=== PATIENT | male | born 1930 | race Caucasian/White ===

== ENCOUNTER 2017-07-20 01:29 | Emergency (ER) | payer OTHER, MEDICARE ==
[~2017-07-20] VITALS: Ht 177.8 cm; Wt 75.0 kg
[~2017-07-20 01:29] MED LIST: ARTHRITIS PAIN325 M1 PO; ASPIRIN E.C. 8181 MG PO; BETAPACE 80MG80 MG PO; COUMADIN 6MG6 MG/TAB PO; NO HOME MEDICATIONS; VITA-MIN1 CAP PO
[2017-07-20 01:40] VITALS: BP 145/103; TEMP 97.4
[2017-07-20] MEDS ORDERED: OMEGA-3 1000 MG1 CAP PO (01:50)
[2017-07-20 04:01] VITALS: PULSE 93
== END 2017-07-20 04:00 | disposition home or self-care (01) ==
LOC: COL.ER 01:29
DX: S01.01XA Laceration without foreign body of scalp, initial encounter (principal); I48.91 Unspecified atrial fibrillation; Z23 Encounter for immunization; V49.40XA Driver injured in collision with unspecified motor vehicles in traffic accident, initial encounter

== ENCOUNTER 2018-03-19 18:54 | Observation (INO) | payer MEDICARE ==
[~2018-03-19] VITALS: Ht 180.3 cm; Wt 78.4 kg
[~2018-03-19 18:54] MED LIST changes: +LEVAQUIN 5500 MG/TA1 PO; +OMEGA-3 1000 MG1 CAP PO
[2018-03-19 19:17] LABS: COLLECTION METHOD CLEAN CATCH
[2018-03-19 19:25] LABS: MUCOUS Present /lpf; PH 5 (5-8); SQUAMOUS EPITHELIAL None Seen /hpf; URINE APPEARANCE Clear; URINE BACTERIA None Seen /hpf; URINE BILIRUBIN Negative (NEGATIVE); URINE BLOOD Negative (NEGATIVE); URINE COLOR Yellow; URINE GLUCOSE Negative (NEGATIVE); URINE KETONE Negative (NEGATIVE); URINE LEUKOCYTE ESTERASE Negative (NEGATIVE); URINE NITRATE Negative (NEGATIVE); URINE PROTEIN(semi-quant) Negative (NEGATIVE); URINE RBC 0-2 /hpf; URINE UROBILINOGEN Negative (NEGATIVE)
[2018-03-19 20:05] LABS: BASO % 0.2 % (0.0-2.0); EOS % 0.3 % (0-4.0); GRAN # 4.9 (1.4-6.5); HEMATOCRIT 35.4 % (42.0-52.0); LYMPH # 0.8 (1.2-3.4); LYMPH % 12.1 % (20.0-51.0); MEAN CELL VOLUME 98 fl (80.0-100.0); MEAN CORPUSCULAR HEMOGLOBIN 33 pg (27.0-31.0); MEAN CORPUSCULAR HGB CONC 34 g/dl (33.0-37.0); MONO # 0.6 (0.1-0.6); MONO % 9.1 % (1.7-9.3); PLATELET COUNT 105 K/mm3 (130-400); REDCELL DISTRIBUTION WIDTH-CV 12.7 % (11.5-14.5)
[2018-03-19 20:17] LABS: ALANINE AMINOTRANSFERASE 35 U/L (21-72); ALBUMIN 3.9 gm/dL (3.5-5.0); ALKALINE PHOSPHATASE 60 U/L (50-136); ANION GAP 6 mmol/L (7-16); AST,SGOT 51 U/L (15-37); BILIRUBIN,TOTAL 0.7 mg/dL (0.0-1.0); BLOOD UREA NITROGEN 24 mg/dL (9-20); CALCIUM 9.5 mg/dL (8.4-10.2); CARBON DIOXIDE 30 mmol/L (22-30); CHLORIDE 100 mmol/L (98-107); CREATININE, serum 0.85 mg/dL (0.66-1.25); GLUCOSE 116 mg/dL (74-106); POTASSIUM 4.6 mmol/L (3.4-5.0); SODIUM 136 mmol/L (137-145)
[2018-03-19 20:19] LABS: LACTIC ACID 1.1 mmol/L (0.4-2.0)
[2018-03-19 20:35] LABS: TROPONIN-I < 0.012 ng/mL (0.000-0.034)
[2018-03-19] MEDS ORDERED: THE MEDICINE S200 M2 PO (21:28)
[2018-03-19] MEDS ORDERED: FOLIC ACID 11 MG/TA1 PO (21:29)
[2018-03-19] MEDS ORDERED: LUTEIN 15 MG-0.1 SGL PO (21:29)
[2018-03-19] MEDS ORDERED: LEADER FIBER1 POW PO (21:29)
[2018-03-19] MEDS ORDERED: BIAXIN 500MG T500 MG PO (21:30)
[2018-03-19] MEDS ORDERED: VITAMINC1000TA (21:30)
[2018-03-19] MEDS ORDERED: NATURE'S BLEND100 M2 PO (21:30)
[2018-03-19 22:22] VITALS: BP 139/77; PULSE 95; TEMP 98.2
--- NOTE | 2018-03-19 22:30 | NUR ---
Pt. arrived to the floor via wheelchair. Pt. is currently alerat and oriented. Pt. assessment complete. IV to rt. ac patent. Pt. denies pain or other needs, call light within reach. Bed alarm on.
--- NOTE | 2018-03-20 02:30 | NUR ---
Pt.'s bedalarm went off. Entered the room to find pt. standing at sink rinsing mouth out with water. Pt. got very combative with this nurse. Pt. confused. Pt. states "I got to get this heavy metal out of me." Atempted to reorient the pt. Pt. is aware that they are at the hospital. Pt. calls the hospital [place] then states "well it used to be". Pt. continues to be very paranoid of staff harming him. Pt. also had incontinent episode of urine. Pt. then wanted to shower off. Remained with the pt. while in the shower. Assisted pt. with dry clothing. IV to rt. ac pulled out by pt. Pt. refuses new IV at this time. Pt. does not want to lay down. Offered pt. the recliner. Pt. voice acceptance. Chair alarm on.
--- NOTE | 2018-03-20 03:30 | NUR ---
Pt. again getting out of chair. Pt. reoiented. Pt. continues to have paranoia of being given "heavy metals" through the IV. Pt. still refuses IV site. Pt. request a pulse ox to monitor on pulse and o2. Dynamap brought into the room. Pt. settled down and sat back in the chair. Chair alarm on.
--- NOTE | 2018-03-20 03:40 | NUR ---
Pt. called with concerns of heart rate. Pt. reports that he has low rate a-fib and reports the dynamap had his pulse down in the 20's. Asked the pt. if he would feel better with a heart monitor on. Pt. voiced that it would help. CAROLYN Dunn notified, orders for tele given. Tele placed on pt. Informed pt. that because we're putting tele on that we really need to have an IV site. Pt. did agree to IV site. New site started to lt. forearm. Pt. denies further needs. Pt. seems much more calm at this time. Chair alarm remains on.
[2018-03-20 04:01] VITALS: BP 107/54; PULSE 73; TEMP 98.2
--- NOTE | 2018-03-20 06:01 | NUR ---
Pt. sitting up in the chair. Pt. doing better at this time. Pt. continues to be A&OX3, but having paranoia. Pt. denies addis tele remains on pt. INT to lt. forearm patent. Pt. denies needs, Chair alarm on.
[2018-03-20 06:56] LABS: BASO % 0.3 % (0.0-2.0); EOS # 0.1 (0.0-0.7); EOS % 0.8 % (0-4.0); GRAN # 4.2 (1.4-6.5); GRAN % 70.5 % (42.2-75.2); HEMOGLOBIN 11.6 g/dl (13.5-18.0); LYMPH % 17.5 % (20.0-51.0); MEAN CELL VOLUME 100 fl (80.0-100.0); MEAN CORPUSCULAR HEMOGLOBIN 33 pg (27.0-31.0); MEAN CORPUSCULAR HGB CONC 34 g/dl (33.0-37.0); MEAN PLATELET VOLUME 10.6 fl (7.4-10.4); MONO # 0.6 (0.1-0.6); MONO % 10.6 % (1.7-9.3); PLATELET COUNT 90 K/mm3 (130-400); RED BLOOD COUNT 3.47 M/mm3 (4.20-5.60); REDCELL DISTRIBUTION WIDTH-CV 12.9 % (11.5-14.5)
[2018-03-20 06:58] LABS: HEMATOCRIT 34.6 % (42.0-52.0)
[2018-03-20 07:02] LABS: CREATININE, serum 0.78 mg/dL (0.66-1.25)
[2018-03-20 08:44] VITALS: BP 106/49; PULSE 71; PULSE 99; TEMP 98.3; TEMP 98.4
--- NOTE | 2018-03-20 10:11 | NUR ---
Initial visit; Patient thanked Studio Owner for stopping by to offer God's blessings.
--- NOTE | 2018-03-20 10:49 | NUR ---
SW attended clinical rounds. The patient had just been accepted to [facility] for long-term care and was in the process of moving there yesterday, 03/19, with support from his sons (Justo and Dickson). The patient then became quite paranoid and was then brought to ED. The clinical team would like to have a family meeting for the patient to discuss going to [facility]. A family meeting was scheduled for today, 03/20, at 1430. CORBIN to continue to follow.
--- NOTE | 2018-03-20 11:30 | NUR ---
Patient has been up and down all morning. He alert, mostly knows where he is and why he is here. He is confused about why he is here and what medications he has been given. Have discussed several times today that he did not get anything. He is very concerned that we will be attempting to start an IV. Explained that will not be happening. Patient getting ready to shower, this will be his 3rd shower. He had ate his breakfast. He is worried the staff and I are trying to poison him so he is refusing to take food from us and only taking it from the kitchen staff. Denies pain and nausea. No other changes at this time. Bed alarm on.
[2018-03-20 11:43] VITALS: BP 159/91; PULSE 59; PULSE 72; TEMP 98.1
[2018-03-20 16:16] VITALS: BP 130/96; PULSE 102; TEMP 98.1
--- NOTE | 2018-03-20 16:42 | NUR ---
SW followed up with the patient's son, Justo, and discussed discharge plan. The patient's son would like to pursue geripsych for the patient. SW discussed the different options around [place]. The patient's son was agreeable for SW to send referrals. CORBIN has contacted and faxed a referral to [facility], [facility], and the [facility]. SW had contacted [facility]. [facility] reports that they are out of network with the patient's insurance. The [facility] reports that if they can accept, it would not be until Friday. SW awaiting their screenings and will continue to follow.
[2018-03-20 17:26] VITALS: BP 163/90; PULSE 98; TEMP 98.3
--- NOTE | 2018-03-20 18:30 | NUR ---
Patient son is heading home at this time. He brought him a cheese burger. Patient was crying over the fact that he ate a burger and was worried they would decide not to bring his burger. Patient was napping and woke up very upset about his and something he was dreaming about. Patient wants to be free to walk without the alarms being set. Explained that is not an option since he continues to try to leave. No other changes at this time. His son is taking his clothes home to wash them. Call light within reach. Bed alarm set.
--- NOTE | 2018-03-20 19:45 | NUR ---
Pt. sitting up in bed at this time. Pt. is alert to person,place and time. Pt. does continue to believe had has "heavy metal" poisoning. Pt. continues to be impulsive. Shift assessment complete. No IV access. Pt. refuses to take medications. Pt. repositioned in bed for comfort. Pt. reports he would like to go to sleep. Bed alarm on. Pt. denies further needs.
[2018-03-21 03:38] VITALS: BP 126/74; PULSE 68; TEMP 98.2
--- NOTE | 2018-03-21 05:46 | NUR ---
Pt. slept better tonight. Pt. remains alert to person, place and time. Pt. still very impulsive. Pt. ambulated the halls 2 times through the night with 1 assist. Pt. denies pain or other needs, call light within reach, bed alarm on.
[2018-03-21 07:33] VITALS: BP 116/79; PULSE 70; TEMP 97.6
[2018-03-21 11:45] VITALS: BP 138/76; PULSE 47; TEMP 98
[2018-03-21 15:31] VITALS: BP 154/71; PULSE 84; TEMP 97.5
--- NOTE | 2018-03-21 18:00 | NUR ---
Patient is doing a lot better today. He has not been confused this afternoon. He is alert and oriented. He is polite and has not been combative. He was still a little confused this am and did not know where he was. No complaints or pain or nausea today. He has had a few visitors. He stated he thinks his problems came from not sleeping and not eating enough. He sat up in the chair most the day and used the call light when needing help. No other changes at this time. Call light within reach.
[2018-03-22 04:08] VITALS: BP 151/64; PULSE 106; TEMP 98.2
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
[2018-03-22 08:18] VITALS: BP 157/85; PULSE 96; TEMP 97.9
[2018-03-22 11:14] VITALS: BP 125/72; PULSE 84; TEMP 98.3
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
--- NOTE | 2018-03-22 13:41 | NUR ---
workers compensation adjuster spoke with [employer] (Adeline) regarding the patient's discharge status and informed her that referrals had been made to [facility] ([facility]), [facility], and [facility] ([facility]) and we are waiting on screening results which we will hear back on starting 03/23/18, and into next week. special services supervisor will follow up as needed.
[2018-03-22 16:22] VITALS: BP 148/72; PULSE 77; TEMP 98.1
[2018-03-22 20:18] VITALS: BP 107/41; PULSE 93; TEMP 98.1
--- NOTE | 2018-03-23 00:05 | NUR ---
PT IN BED RESTING. PT HAS GOTTEN SOME SLEEP TONIGHT. NO MENTION OF HEAVY METAL POISONING OR BEING COMMITTED TO A MENTAL ASYLUM. PT DID GO FOR A LONG WALK IN THE HALLWAY.
[2018-03-23 06:17] VITALS: BP 130/75; PULSE 76; TEMP 97.9
--- NOTE | 2018-03-23 06:25 | NUR ---
RESTING QUIETLY. PT SEEMS MORE LUCID THIS MORNING. PT SLEPT THE MAJORITY OF THE NIGHT. PT STILL UPSET ABOUT BEING FROM HIS AND ALSO ABOUT THE POSSIBLE OUTCOMES OF TODAY'S PSYCHE EVAL.
[2018-03-23 06:45] LABS: BASO % 0.4 % (0.0-2.0); EOS # 0.1 (0.0-0.7); EOS % 2.4 % (0-4.0); GRAN # 3.6 (1.4-6.5); GRAN % 67.2 % (42.2-75.2); HEMOGLOBIN 11.7 g/dl (13.5-18.0); LYMPH # 1.1 (1.2-3.4); MEAN CELL VOLUME 99 fl (80.0-100.0); MEAN CORPUSCULAR HEMOGLOBIN 34 pg (27.0-31.0); MEAN CORPUSCULAR HGB CONC 34 g/dl (33.0-37.0); MEAN PLATELET VOLUME 10.3 fl (7.4-10.4); MONO # 0.5 (0.1-0.6); MONO % 9.8 % (1.7-9.3); PLATELET COUNT 85 K/mm3 (130-400); RED BLOOD COUNT 3.47 M/mm3 (4.20-5.60); REDCELL DISTRIBUTION WIDTH-CV 13.1 % (11.5-14.5)
[2018-03-23 06:51] LABS: HEMATOCRIT 34.4 % (42.0-52.0)
[2018-03-23 07:07] LABS: CALCIUM 8.8 mg/dL (8.4-10.2); CREATININE, serum 0.74 mg/dL (0.66-1.25); MAGNESIUM 1.9 mg/dL (1.6-2.3); POTASSIUM 4.1 mmol/L (3.4-5.0)
[2018-03-23 07:49] VITALS: BP 108/58; PULSE 67; TEMP 98.2
--- NOTE | 2018-03-23 08:03 | NUR ---
Patient very plesant this am. Oriented, knows why he is here, he reports it the end of the month of February the , so only off one day. He reports "sleeping like a log". Patient up to the bathroom & voided. He is up to the sink, he brushed his teeth & shaved. Breakfast ordered. Tele on VSS. No IV. Will monitor
--- NOTE | 2018-03-23 09:57 | NUR ---
patient assisted to the bathroom again, and he again brushed his teeth & combed his hair. He remains plesant. Patient wanting to speak to his at [facility]. Patient has beening singing different songs this AM.
--- NOTE | 2018-03-23 10:23 | NUR ---
Patient ready for a nap. Stand by assist back to bed. Will let him rest
--- NOTE | 2018-03-23 10:55 | NUR ---
Patient accepted by [facility]. Patients son notified and he is coming in to meet with dr and patient.
--- NOTE | 2018-03-23 11:20 | NUR ---
pATIENT BACK UP TO CHAIR. wE AMBULATED THE ENTIRE THIRD FLOOR AND HE DID WELL.
[2018-03-23 11:24] LABS: COLLECTION METHOD CLEAN CATCH
[2018-03-23 11:33] LABS: MUCOUS Present /lpf; PH 5 (5-8); SQUAMOUS EPITHELIAL None Seen /hpf; URINE APPEARANCE Clear; URINE BACTERIA None Seen /hpf; URINE BILIRUBIN Negative (NEGATIVE); URINE BLOOD Negative (NEGATIVE); URINE COLOR Yellow; URINE GLUCOSE Negative (NEGATIVE); URINE KETONE Negative (NEGATIVE); URINE LEUKOCYTE ESTERASE Negative (NEGATIVE); URINE NITRATE Negative (NEGATIVE); URINE PROTEIN(semi-quant) Negative (NEGATIVE); URINE RBC 0-2 /hpf; URINE UROBILINOGEN Negative (NEGATIVE); URINE WBC 0-2 /hpf
[2018-03-23 11:42] LABS: TRICYCLIC ANTIDEPRESS URINE NEGATIVE
--- NOTE | 2018-03-23 11:47 | NUR ---
Hospitalist team had family meeting with patient sons.
--- NOTE | 2018-03-23 12:15 | NUR ---
Patient giving MINI MENTAL exam per [facility]. He scored 29/30. Only thing he miss was date reporting it was the 29, not 28. Will monitor
[2018-03-23 12:43] VITALS: BP 124/49; PULSE 76; TEMP 97.9
--- NOTE | 2018-03-23 13:01 | NUR ---
Patient did well with lunch. Patient up ambulating the halls with Hose Suspender Cutter
[2018-03-23 15:28] VITALS: BP 142/69; PULSE 78; TEMP 98
--- NOTE | 2018-03-23 16:28 | NUR ---
Patient sitting up in chair. Sons at bedside. Awaiting [facility] consult. Dr. Pickard rounded, he is her friend.
--- NOTE | 2018-03-23 16:30 | NUR ---
Patients son reports they found a family friend that runs a private pay home health agency will move in with patient and they will also have BLUEPRINT CUTTER help when needed. They deny wanting [facility]. Psych is still pending and [facility] can accept 16/09. SW informed nurse of this information and placed the needed paperwork and contact information on the chart. WIll follow up in am if patient hasnt dc.
--- NOTE | 2018-03-23 17:30 | NUR ---
Dr. Fausto corcoran.
[2018-03-23] MEDS ORDERED: SEROQUEL 2525 MG/TAB PO (18:25)
--- NOTE | 2018-03-23 19:06 | NUR ---
Hospitalist team notifed of recommendations. Discharge orders obtained. House superviser Hector Assisted in notifing the family that he will DC tonight. made aware of there reservations. No change in orders. Hector did also speak with Leatha Merchant. Patient given discharge instructions with son Itz who will take him home. Tele off. Patient dressed & wheeled out with all belongigns.
--- NOTE | 2018-03-24 08:24 | NUR ---
Patient dc home today with support from his sons and a family friend. He will follow up with Outpatient Psych for further recommendations. CORBIN informed [facility] of patients dc.
== END 2018-03-23 19:09 | disposition home or self-care (01) ==
LOC: COL.ER 18:54 → SURG 21:03 → EDBEDREQ 21:19 → SURG 03-23 19:09
PROVIDERS: Emergency Medicine; Family Medicine; Nurse Practitioner; Physician Assistant; ADMIT Hospitalist
DX: R41.0 Disorientation, unspecified (principal); F29 Unspecified psychosis not due to a substance or known physiological condition; I48.91 Unspecified atrial fibrillation; D69.6 Thrombocytopenia, unspecified; Z87.440 Personal history of urinary (tract) infections
CPT/HCPCS: 99222-AI; 99231-AI; 99232-AI; G0378; J7030

== ENCOUNTER → 2019-08-06 | Outpatient (CLI) | payer MEDICARE ==
[~2019-08-06] MED LIST changes: +ANTIVERT 25MG25 MG PO; +BIAXIN 500MG T500 MG PO; +FOLIC ACID 11 MG/TA1 PO; +LEADER FIBER1 POW PO; +LUTEIN 15 MG-0.1 SGL PO; +NATURE'S BLEND100 M2 PO; +SEROQUEL 2525 MG/TAB PO; +THE MEDICINE S200 M2 PO; +VITAMINC1000TA
== END ==
LOC: COL.RAD 10:16
DX: M48.061 Spinal stenosis, lumbar region without neurogenic claudication (principal); M51.16 Intervertebral disc disorders with radiculopathy, lumbar region; Z87.81 Personal history of (healed) traumatic fracture

== ENCOUNTER → 2019-10-18 | Outpatient (CLI) | payer MEDICARE ==
[~2019-10-18] VITALS: Ht 180.3 cm; Wt 82.1 kg
[~2019-10-18] MED LIST changes: +CRESTOR5 MG PO; +FISH OIL 1000MG1 CAP PO; +LUTEIN20 M1 PO; +MASON NATURAL2000 IU PO; +VITAMINC1000TA PO; +[UNRECOGNIZED DRUG - OTHER] PO; +[UNRECOGNIZED DRUG - OTHER] PO
[2019-10-18 06:27] VITALS: BP 145/71; PULSE 81
--- NOTE | 2019-10-18 07:45 | NUR ---
Pt unable to lay on ct table even with pillows padded under abdomen. Pt refused to finish exam. Procedure canceled.
== END ==
LOC: COL.RAD 05:50
DX: M48.00 Spinal stenosis, site unspecified (principal); M54.10 Radiculopathy, site unspecified